=== PATIENT | female | born 1955 | race Caucasian/White ===

== ENCOUNTER → 2021-07-26 | Outpatient (CLI) | payer MEDICARE ==
[2021-07-26 15:26] VITALS: BP 168/107; PULSE 77; TEMP 98.2; BMI 39.4
--- NOTE | 2021-07-26 16:20 | P.HPBAR ---
Bariatric H&P - History & Physicial H&P Date: 07/26/21 History & Physicial: Visit/CC: lap band follow up Patient initial contact: Initial weight: Initial weight in pounds: Height: 5 ft Initial BMI: Last weight: Current weight: 91.626 kg Current weight in pounds: 202.00 Current BMI: 39.4 [place] body weight (based on NIH guidelines): 45.359 kg Excess body weight loss: The patient is a 66 year-old F who presents for Bariatric Assessment. Patient resents today for LAP-BAND follow-up. She's been seen several years. She has some mild GERD. She is question remove her band and convert to sleeve gastrectomy. Her issues with GERD significant over the last several years. He is unable to have her Syde adjusted due to increasing GERD symptoms. Past Medical History History of Any Multi-Drug Resistant Organisms: None Reported Past Surgical History: Bariatric Surgery Additional Past Surgical History / Comment(s): lap band 2000 lap band replacement 2009 panniculectomy Past Anesthesia/Blood Transfusion Reactions: No Reported Reaction Past Psychological History: Anxiety, Depression Smoking Status: Never smoker Past Alcohol Use History: None Reported Past Drug Use History: None Reported Surgical - Exam Vital Signs Temp Pulse BP 98.2 F 77 168/107 07/26/21 15:17 07/26/21 15:17 07/26/21 15:17 - General well developed, well nourished, no distress - Eyes PERRL - ENT normal pinna - Neck no masses - Respiratory normal expansion - Cardiovascular Rhythm: regular - Abdomen Abdomen: soft, non tender Bariatric Assessment & Plan Plan: I discussed the patient removal of LAP-BAND conversion sleeve yesterday. I went over the risks and benefits of procedure. The patient will have an EGD performed if she should sized to Convert sleeve yesterday. We will attempt insurance authorization. Bariatric Checklist Checklist: Plan: Checklist: EGD: 1. Hiatal hernia: 2. H. Pylori: HgbA1c: Vitamin D: Smoking: Primary care physician referral: dr mcclellan Psychiatry clearance: Cardiology clearance: Sleep study: Diet journal: VTE risk score: VTE risk level: Rehab needs at discharge:
[2021-07-26 16:32] LABS: HCT 40.9 % (34.0-46.0); HGB 13.2 gm/dL (11.4-16.0); MCH 29.6 pg (25.0-35.0); MCHC 32.3 g/dL (31.0-37.0); MCV 91.7 fL (80.0-100.0); Mean Platelet Volume 7.7; Platelet Count 282 k/uL (150-450); RBC 4.46 m/uL (3.80-5.40); RDW 13.1 % (11.5-15.5); WBC 8.8 k/uL (3.8-10.6)
[2021-07-27 05:11] LABS: African American GFR (CKD) 107.1 (60.0-200.0); Albumin 4.5 g/dL (3.8-4.9); Albumin/Globulin Ratio 1.85 (1.60-3.17); Anion Gap 13.6 mmol/L (4.00-12.00); BUN/Creat Ratio 20.69 Ratio (12.00-20.00); Blood Urea Nitrogen 13.8 mg/dL (9.0-27.0); Carbon Dioxide 20.3 mmol/L (21.6-31.8); Folate, Serum 6.5 ng/mL (4.40-31.00); Globulin 2.4 g/dL (1.6-3.3); Non-African American GFR(CKD) 92.4 (60.0-200.0); Potassium 4.5 mmol/L (3.5-5.5); Total Bilirubin 0.4 mg/dL (0.30-1.20)
== END ==
LOC: BARWHC3 14:45
PROVIDERS: ATTEND Surgery
DX: Z08 Encounter for follow-up examination after completed treatment for malignant neoplasm (principal); K21.9 Gastro-esophageal reflux disease without esophagitis; Z98.84 Bariatric surgery status; F41.9 Anxiety disorder, unspecified; F32.9 Major depressive disorder, single episode, unspecified
CPT/HCPCS: 84425; 80053; 82607; 82746; 85027; 82306; 83036; 93005; G0463; 99211

== ENCOUNTER 2021-10-18 08:04 | Day surgery (SDC) | payer MEDICARE ==
[2021-10-13 11:31] VITALS: BMI 39.0
[2021-10-18 08:20] VITALS: TEMP 97.8
[2021-10-18] MEDS ORDERED: LACTATED RINGERS 1,000 ML IV SCH (08:27)
[2021-10-18] MEDS ORDERED: LIDOCAINE 1% (10MG/ML) FOR IV START INTRADERMA PRN (08:27)
[2021-10-18] MEDS ORDERED: LIDOCAINE 1% INJ 10MG/ML (20 ML MDV) ONE (09:10)
[2021-10-18] MEDS ORDERED: GLYCOPYRROLATE 0.2 MG/ML 2 ML VIAL ONE (09:10)
[2021-10-18] MEDS ORDERED: PROPOFOL 10 MG/ML 20 ML VIAL IV ONE (09:10)
--- NOTE | 2021-10-18 09:16 | P.GSHP ---
History of Present Illness H&P Date: 10/18/21 Chief Complaint: GERD, morbid obesity Is a 66-year-old female history of morbid obesity and of GERD. Patient undergoing workup for conversion sleeve gastrectomy. Past Medical History Past Medical History: Osteoarthritis (OA) Additional Past Medical History / Comment(s): LAP BAND REMOVED-POSSIBLE GASTRIC SLEEVE OR BYPASS History of Any Multi-Drug Resistant Organisms: None Reported Past Surgical History: Bariatric Surgery Additional Past Surgical History / Comment(s): lap band 2000, lap band replacement 2009, panniculectomy, EGD, Past Anesthesia/Blood Transfusion Reactions: No Reported Reaction Smoking Status: Never smoker - Past Family History Sister(s) Family Medical History: Cancer Father Family Medical History: Cancer Medications and Allergies Home Medications Medication Instructions Recorded Confirmed Type Escitalopram [Lexapro] 20 mg PO DAILY 07/27/21 10/13/21 History Gabapentin 300 mg PO TID 07/27/21 10/13/21 History HYDROcodone/APAP 10-325MG [[place] 1 tab PO TID 07/27/21 10/13/21 History 10-325] buPROPion [Wellbutrin] 75 mg PO DAILY 07/27/21 10/13/21 History Allergies Allergy/AdvReac Type Severity Reaction Status Date / Time No Known Allergies Allergy Verified 10/18/21 08:21 Surgical - Exam Vital Signs Temp Pulse Resp BP Pulse Ox 97.8 F 73 20 148/89 98 10/18/21 08:19 10/18/21 08:19 10/18/21 08:19 10/18/21 08:19 10/18/21 08:19 - General well developed, well nourished, no distress - Eyes PERRL - ENT normal pinna - Neck no masses - Respiratory normal expansion - Cardiovascular Rhythm: regular - Abdomen Abdomen: soft, non tender Assessment and Plan Assessment: GERD, morbid obesity. We'll perform EGD.
--- NOTE | 2021-10-18 09:20 | P.OP ---
Date of Procedure: 10/18/21 Preoperative Diagnosis: GERD Morbid obesity Postoperative Diagnosis: Gastritis Morbid obesity Procedure(s) Performed: EGD Anesthesia: MAC Surgeon: Nabeel Ellis Pathology: other (Antrum) Condition: stable Disposition: PACU Description of Procedure: Patient's placed on the endoscopy table in the lateral position. She received IV sedation. The gastroscope placed oropharynx passed in the esophagus and stomach. Scope placement pylorus. The first and second portion of duodenum appeared normal. Scope summer back the antrum this. Mildly inflamed. A biopsies performed. Scope was unretroflexed and remainder of the stomach appeared normal. The GE junction was at 40 cm. The distal esophagus. Normal. Proximal esophagus performed scope withdrawn for patient.
[2021-10-18 09:33] VITALS: RESP 16
[2021-10-18 09:57] VITALS: BP 115/74; PULSE 77
== END 2021-10-18 10:10 | disposition home or self-care (01) ==
LOC: ORWHC2ENDO 08:04
PROVIDERS: ATTEND Surgery
DX: K29.70 Gastritis, unspecified, without bleeding (principal); K21.9 Gastro-esophageal reflux disease without esophagitis; E66.01 Morbid (severe) obesity due to excess calories; M19.90 Unspecified osteoarthritis, unspecified site; F41.9 Anxiety disorder, unspecified; F32.A Depression, unspecified; Z68.39 Body mass index [BMI] 39.0-39.9, adult; Z98.890 Other specified postprocedural states; Z79.899 Other long term (current) drug therapy; Z80.9 Family history of malignant neoplasm, unspecified
CPT/HCPCS: 88305; 43239; J2001; J2704

== ENCOUNTER → 2021-11-22 | Outpatient (CLI) | payer MEDICARE ==
[2021-11-22 14:15] VITALS: BP 155/91; PULSE 87; RESP 18; TEMP 98.3; BMI 38.0
--- NOTE | 2021-12-02 18:48 | P.HPBAR ---
Bariatric H&P - History & Physicial H&P Date: 11/22/21 History & Physicial: Visit/CC: follow up Patient initial contact: Initial weight: Initial weight in pounds: Height: 5 ft Initial BMI: Last weight: Current weight: 88.451 kg Current weight in pounds: 195.00 Current BMI: 38.0 [place] body weight (based on NIH guidelines): 45.359 kg Excess body weight loss: The patient is a 66 year-old F who presents for Bariatric Assessment. Patient presents today for bariatric follow-up. She has some mild GERD. She has not been seen in several months. Past Medical History Past Medical History: Osteoarthritis (OA) Additional Past Medical History / Comment(s): LAP BAND REMOVED-POSSIBLE GASTRIC SLEEVE OR BYPASS History of Any Multi-Drug Resistant Organisms: None Reported Past Surgical History: Bariatric Surgery Additional Past Surgical History / Comment(s): lap band 2000, lap band replacement 2009, panniculectomy, EGD, Past Anesthesia/Blood Transfusion Reactions: No Reported Reaction Past Psychological History: Anxiety, Depression Smoking Status: Never smoker Past Alcohol Use History: None Reported Past Drug Use History: None Reported - Past Family History Sister(s) Family Medical History: Cancer Father Family Medical History: Cancer Surgical - Exam Vital Signs Temp Pulse Resp BP 98.3 F 87 18 155/91 11/22/21 14:11 11/22/21 14:11 11/22/21 14:11 11/22/21 14:11 - General well developed, well nourished, no distress - Eyes PERRL - ENT normal pinna - Neck no masses - Respiratory normal expansion - Cardiovascular Rhythm: regular - Abdomen Abdomen: soft, non tender Bariatric Assessment & Plan Plan: Patient is doing well from late weight loss standpoint. Her GERD is minimal and will be observed. She'll follow-up in 4 weeks. Bariatric Checklist Checklist: Plan: Checklist: EGD: 1. Hiatal hernia: 2. H. Pylori: HgbA1c: Vitamin D: Smoking: Primary care physician referral: dr mcclellan Psychiatry clearance: Cardiology clearance: Sleep study: Diet journal: VTE risk score: VTE risk level: Rehab needs at discharge:
== END ==
LOC: BARWHC3 13:15
PROVIDERS: ATTEND Surgery
DX: Z09 Encounter for follow-up examination after completed treatment for conditions other than malignant neoplasm (principal); K21.9 Gastro-esophageal reflux disease without esophagitis; M19.90 Unspecified osteoarthritis, unspecified site; Z98.84 Bariatric surgery status; F32.A Depression, unspecified; F41.9 Anxiety disorder, unspecified
CPT/HCPCS: 99211

== ENCOUNTER → 2021-12-27 | Outpatient (CLI) | payer MEDICARE ==
[2021-12-27 13:28] VITALS: BP 168/101; PULSE 90; RESP 16; TEMP 98.1
[2021-12-27 13:29] VITALS: BMI 38.7
--- NOTE | 2021-12-28 11:51 | P.HPBAR ---
Bariatric H&P - History & Physicial H&P Date: 12/27/21 History & Physicial: Visit/CC: Lap band F/U Patient initial contact: Initial weight: 95.254 kg Initial weight in pounds: 210.00 Height: 5 ft Initial BMI: 41.0 Last weight: Current weight: 89.811 kg Current weight in pounds: 198.00 Current BMI: 38.7 [place] body weight (based on NIH guidelines): 45.359 kg Excess body weight loss: 10.9% The patient is a 66 year-old F who presents for Bariatric Assessment. Patient resents today for [place] fall. She wishes undergo sleeve conversion. She's had issues with GERD and dysphagia her LAP-BAND. Past Medical History Past Medical History: Osteoarthritis (OA) Additional Past Medical History / Comment(s): LAP BAND REMOVED-POSSIBLE GASTRIC SLEEVE OR BYPASS History of Any Multi-Drug Resistant Organisms: None Reported Past Surgical History: Bariatric Surgery Additional Past Surgical History / Comment(s): lap band 2000, lap band replacement 2009, panniculectomy, EGD, Past Anesthesia/Blood Transfusion Reactions: No Reported Reaction Past Psychological History: Anxiety, Depression Smoking Status: Never smoker Past Alcohol Use History: None Reported Past Drug Use History: None Reported - Past Family History Sister(s) Family Medical History: Cancer Father Family Medical History: Cancer Surgical - Exam Vital Signs Temp Pulse Resp BP 98.1 F 90 16 168/101 12/27/21 13:19 12/27/21 13:19 12/27/21 13:19 12/27/21 13:19 - General well developed, well nourished, no distress - Eyes PERRL - ENT normal pinna - Neck no masses - Respiratory normal expansion - Cardiovascular Rhythm: regular - Abdomen Abdomen: soft, non tender Bariatric Assessment & Plan Plan: GERD, dysphagia. Patient will attempt to have insurance authorization for conversion to sleeve gastrectomy. Bariatric Checklist Checklist: Plan: Checklist: EGD: 1. Hiatal hernia: 2. H. Pylori: HgbA1c: Vitamin D: Smoking: Primary care physician referral: dr mcclellan Psychiatry clearance: Cardiology clearance: Sleep study: Diet journal: VTE risk score: VTE risk level: Rehab needs at discharge:
== END ==
LOC: BARWHC3 13:09
PROVIDERS: ATTEND Surgery
DX: Z09 Encounter for follow-up examination after completed treatment for conditions other than malignant neoplasm (principal); K21.9 Gastro-esophageal reflux disease without esophagitis; M19.90 Unspecified osteoarthritis, unspecified site; Z98.84 Bariatric surgery status; F41.9 Anxiety disorder, unspecified; F32.A Depression, unspecified
CPT/HCPCS: 99211

== ENCOUNTER → 2022-01-17 | Outpatient (CLI) | payer MEDICARE ==
[2022-01-17 12:26] VITALS: BMI 39.6
== END ==
LOC: BARWHC3 08:29
PROVIDERS: ATTEND Surgery
DX: E66.01 Morbid (severe) obesity due to excess calories (principal); Z71.3 Dietary counseling and surveillance; Z68.39 Body mass index [BMI] 39.0-39.9, adult
CPT/HCPCS: 97804

== ENCOUNTER → 2022-03-28 | Outpatient (CLI) | payer MEDICARE ==
[2022-03-28 13:56] VITALS: BP 153/88; PULSE 82; RESP 12; TEMP 97.8; BMI 37.7
--- NOTE | 2022-03-28 14:57 | P.HPBAR ---
Bariatric H&P - History & Physicial H&P Date: 03/28/22 History & Physicial: Visit/CC: presurgical sleeve Patient initial contact: Initial weight: 95.254 kg Initial weight in pounds: 210.00 Height: 5 ft Initial BMI: 41.0 Last weight: Current weight: 87.543 kg Current weight in pounds: 193.00 Current BMI: 37.7 [place] body weight (based on NIH guidelines): 45.359 kg Excess body weight loss: 15.4% The patient is a 66 year-old F who presents for Bariatric Assessment. Patient presents today for presurgical consultation. She is requesting to convert from LAP-BAND procedure to gastric sleeve. Patient is alert morbidly obese. BMI is 38. Patient is an excellent understanding the procedure including possible risks such as gastric injury small bowel injury. Past Medical History Past Medical History: Osteoarthritis (OA), Sleep Apnea/CPAP/BIPAP Additional Past Medical History / Comment(s): LAP BAND REMOVED-POSSIBLE GASTRIC SLEEVE OR BYPASS History of Any Multi-Drug Resistant Organisms: None Reported Past Surgical History: Bariatric Surgery Additional Past Surgical History / Comment(s): lap band 2000, lap band replacement 2009, panniculectomy, EGD, Past Anesthesia/Blood Transfusion Reactions: No Reported Reaction Past Psychological History: Anxiety, Depression Smoking Status: Never smoker Past Alcohol Use History: None Reported Past Drug Use History: None Reported - Past Family History Sister(s) Family Medical History: Cancer Father Family Medical History: Cancer Surgical - Exam Vital Signs Temp Pulse Resp BP 97.8 F 82 12 153/88 03/28/22 13:52 03/28/22 13:52 03/28/22 13:52 03/28/22 13:52 - General well developed, well nourished, no distress - Abdomen Abdomen: soft, non tender Bariatric Assessment & Plan Plan: Morbid obesity. Patient be converted from lap band to gastric sleeve. QUESTIONS have been answered in the office. Bariatric Checklist Checklist: Plan: Checklist: EGD: 1. Hiatal hernia: 2. H. Pylori: HgbA1c: Vitamin D: Smoking: Primary care physician referral: dr mcclellan Psychiatry clearance: Cardiology clearance: Sleep study: Diet journal: VTE risk score: VTE risk level: Rehab needs at discharge:
[2022-03-28 22:27] LABS: Basophils # (A) 0.07 X 10*3/uL (0.00-0.10); Basophils % (A) 0.9 %; Eosinophils # (A) 0.19 X 10*3/uL (0.04-0.35); Eosinophils % (A) 2.3 %; HCT 43.1 % (37.2-46.3); HGB 14.1 g/dL (12.0-15.0); Immature Grans, Automated 0.2 %; Lymphocytes # (A) 2.79 X 10*3/uL (0.90-5.00); Lymphocytes % (A) 34.1 %; MCH 29.6 pg (27.0-32.0); MCHC 32.7 g/dL (32.0-37.0); MCV 90.5 fL (80.0-97.0); Mean Platelet Volume 10.9 fL (9.5-12.2); Monocytes # (A) 0.92 X 10*3/uL (0.20-1.00); Monocytes % (A) 11.2 %; NRBC Per 100 WBC 0 /100 WBCS (0.0-0.0); Neutrophils # (A) 4.19 X 10*3/uL (1.80-7.70); Neutrophils % (A) 51.3 %; Platelet Count 296 X 10*3/uL (140-440); RBC 4.76 X 10*6/uL (4.10-5.20); RDW 13.1 % (11.5-14.5); WBC 8.18 X 10*3/uL (4.50-10.00)
[2022-03-28 22:28] LABS: African American GFR (CKD) 105.4 (60.0-200.0); Albumin 4.6 g/dL (3.8-4.9); Albumin/Globulin Ratio 1.64 (1.60-3.17); Anion Gap 13.2 mmol/L (10.00-18.00); BUN/Creat Ratio 19.71 Ratio (12.00-20.00); Blood Urea Nitrogen 13.8 mg/dL (9.0-27.0); Calcium 10.6 mg/dL (8.7-10.3); Carbon Dioxide 24.8 mmol/L (20.0-27.5); Globulin 2.8 g/dL (1.6-3.3); Non-African American GFR(CKD) 90.9 (60.0-200.0); Potassium 4.2 mmol/L (3.5-5.5); Total Bilirubin 0.7 mg/dL (0.30-1.20); Total Protein 7.4 g/dL (6.2-8.2)
== END ==
LOC: BARWHC3 13:38
PROVIDERS: ATTEND Surgery
DX: Z01.818 Encounter for other preprocedural examination (principal); E66.01 Morbid (severe) obesity due to excess calories; M19.90 Unspecified osteoarthritis, unspecified site; F41.9 Anxiety disorder, unspecified; F32.A Depression, unspecified; Z68.38 Body mass index [BMI] 38.0-38.9, adult; Z79.899 Other long term (current) drug therapy
CPT/HCPCS: 80053; 85025; G0463; 99211

== ENCOUNTER 2022-04-04 06:48 | Inpatient (IN) | payer MEDICARE ==
[~2022-04-04 06:48] MED LIST: DEXAMETHASONE SOD PHOSPHATE 4 MG/ML 1 ML VIAL IV ONE; ENOXAPARIN 40 MG/0.4 ML SYRINGE SQ PRN; LIDOCAINE 1% (10MG/ML) FOR IV START INTRADERMA PRN; ONDANSETRON 4 MG/2 ML VIAL IVP ONE
[2022-04-04] MEDS: LACTATED RINGERS 1,000 ML IV SCH (07:44)
--- NOTE | 2022-04-04 08:41 | P.GSHP ---
History of Present Illness H&P Date: 04/04/22 Chief Complaint: Morbid obesity This a 66-year-old female with morbid obesity. Her BMI is 37. Patient's had previous Syed surgery. Patient is unable to have her LAP-BAND adjusted any further. Patient presents today for removal of LAP-BAND system and conversion sleeve gastrectomy. Patient is aware of the risks of surgery including possible gastric injury, bleeding and infection. Past Medical History Past Medical History: Osteoarthritis (OA), Sleep Apnea/CPAP/BIPAP Additional Past Medical History / Comment(s): no CPAP use History of Any Multi-Drug Resistant Organisms: None Reported Past Surgical History: Bariatric Surgery Additional Past Surgical History / Comment(s): lap band 2000, lap band replacement 2009, panniculectomy, EGD, Past Anesthesia/Blood Transfusion Reactions: No Reported Reaction Smoking Status: Never smoker - Past Family History Sister(s) Family Medical History: Cancer Father Family Medical History: Cancer Medications and Allergies Home Medications Medication Instructions Recorded Confirmed Type Escitalopram [Lexapro] 20 mg PO DAILY 07/27/21 04/04/22 History Gabapentin 300 mg PO TID 07/27/21 04/04/22 History HYDROcodone/APAP 10-325MG [[place] 1 tab PO TID 07/27/21 04/04/22 History 10-325] buPROPion [Wellbutrin] 150 mg PO BID 07/27/21 04/04/22 History Allergies Allergy/AdvReac Type Severity Reaction Status Date / Time No Known Allergies Allergy Verified 04/04/22 07:28 Surgical - Exam Vital Signs Temp Pulse Resp BP Pulse Ox 97.1 F L 76 16 152/97 98 04/04/22 07:30 04/04/22 07:30 04/04/22 07:30 04/04/22 07:30 04/04/22 07:30 - General well developed, well nourished, no distress - Eyes PERRL - ENT normal pinna - Neck no masses - Respiratory normal expansion - Cardiovascular Rhythm: regular - Abdomen Abdomen: soft, non tender Assessment and Plan Assessment: Morbid obesity. We'll perform removal of LAP-BAND conversion to sleeve gastrectomy.
[2022-04-04] MEDS ORDERED: PHENYLEPHRINE-0.9% NACL SYG 1,000 MCG/10 ML SYRINGE ONE (09:00)
[2022-04-04] MEDS ORDERED: PROPOFOL 10 MG/ML 20 ML VIAL IV ONE (09:00)
[2022-04-04] MEDS ORDERED: KETOROLAC 15 MG/ML 1 ML VIAL ONE (09:00)
[2022-04-04] MEDS ORDERED: HYDROmorphone (PF) 1 MG/ML ONE (09:00)
[2022-04-04] MEDS ORDERED: LIDOCAINE 4% LTA KIT (4 ML) TOPICAL ONE (09:00)
[2022-04-04] MEDS ORDERED: SUCCINYLCHOLINE CHLORIDE 100 MG/5 ML SYR IV ONE (09:00)
[2022-04-04] MEDS ORDERED: GLYCOPYRROLATE 0.2 MG/ML 2 ML VIAL ONE (09:00)
[2022-04-04] MEDS ORDERED: NEOSTIGMINE 1 MG/ML 10 ML VIAL ONE (09:00)
[2022-04-04] MEDS ORDERED: MIDAZOLAM 2 MG/2 ML VIAL ONE (09:00)
[2022-04-04] MEDS ORDERED: fentaNYL (PF) 50 MCG/ML 2 ML AMP ONE (09:00)
[2022-04-04] MEDS ORDERED: BUPIVACAIN-EPI 0.25%-1:200,000 30 ML VIAL SQ ONE (09:35)
[2022-04-04] MEDS ORDERED: LACTATED RINGERS 1,000 ML IV ONE (09:52)
[2022-04-04] MEDS ORDERED: NALOXONE 0.4 MG/ML 1 ML VIAL IV PRN (10:44)
[2022-04-04] MEDS: HYDROmorphone 0.5 MG/0.5 ML SYRINGE IVP PRN ×5 (11:08→22:04)
[2022-04-04] MEDS: KETOROLAC 15 MG/ML 1 ML VIAL IVP SCH ×3 (12:29→23:23)
[2022-04-04] MEDS: ALBUTEROL NEBULIZED 2.5 MG/3 ML INHALATION SCH ×3 (12:53→20:30)
[2022-04-04] MEDS: 0.9% NACL WITH KCL 20 MEQ/L 1,000 ML IV SCH ×2 (13:35→23:24)
[2022-04-04] MEDS: SIMETHICONE 40 MG/0.6 ML DROPS 2,000 MG/30 ML BOTTLE PO PRN (13:37)
[2022-04-04] MEDS: HYOSCYAMINE ORAL DROPS 1.875 MG/15 ML BOTTLE PO PRN (13:38)
[2022-04-04] MEDS: HYDROmorphone 1 MG/ML 1 ML SYRINGE IVP PRN (16:07)
--- NOTE | 2022-04-04 19:17 | CONS ---
CONSULTATION REASON FOR CONSULTATION: Advice regarding sleep apnea and multiple other medical issues, requested by Dr. Ellis. HISTORY OF PRESENT ILLNESS: This 66-year-old woman with a past medical history of DJD and sleep apnea underwent removal of lap band and conversion to sleeve gastrectomy. The patient tolerated the procedure well. There is no history of any fever or rigors. No history of headache, loss of consciousness, seizures. PAST MEDICAL HISTORY: Previous history of gastric surgery, multiple medical issues. HOME MEDICATIONS: Reviewed. They include Wellbutrin. Doses and the rest of the medications are noted. ALLERGIES: NONE. FAMILY HISTORY: History of cancer in the family. SOCIAL HISTORY: No history of smoking. No history of alcohol intake. REVIEW OF SYSTEMS: Fourteen-point review of systems negative except as mentioned earlier. PHYSICAL EXAMINATION: Pulse 76, blood pressure 114/77, pulse ox 92% on room air. HEENT: Conjunctivae normal. NECK: No jugular venous distention. CARDIOVASCULAR: S1, S2 muffled. RESPIRATION: Breath sounds diminished at the bases. A few scattered rhonchi. ABDOMEN: Soft. Status post surgery. LEGS: No edema. No swelling. NERVOUS SYSTEM: Higher functions as mentioned earlier. Moves all 4 limbs. No focal motor or sensory deficit. LYMPHATICS: No lymph node palpable in neck, axillae or groin. SKIN: No ulcer, rash, bleeding. JOINTS: No active deforming arthropathy. LABS: The preop labs are reviewed. Chemistry within normal limits. ASSESSMENT: 1. Status post removal of lap band and sleeve gastrectomy. 2. Degenerative joint disease. 3. History of sleep apnea. RECOMMENDATIONS AND DISCUSSION: In this 66-year-old woman who presented after surgery, at this time I recommend to continue current medications. Resume the home medications. Patient is currently medically stable. Proton pump inhibitors. DVT prophylaxis. Will follow the patient closely with you. Patient may be asked to follow up with primary physician closely after discharge. Thank you, Dr. Ellis. MMIFEANYIL / WESTN: [id number] /
[2022-04-04] MEDS: ENOXAPARIN 40 MG/0.4 ML SYRINGE SQ SCH (21:05)
[2022-04-04] MEDS: ONDANSETRON 4 MG/2 ML VIAL IVP PRN (22:04)
[2022-04-05] MEDS: SIMETHICONE 40 MG/0.6 ML DROPS 2,000 MG/30 ML BOTTLE PO PRN ×2 (00:03→18:01)
[2022-04-05] MEDS: HYDROmorphone 0.5 MG/0.5 ML SYRINGE IVP PRN (03:43)
[2022-04-05] MEDS: 0.9% NACL WITH KCL 20 MEQ/L 1,000 ML IV SCH (04:46)
[2022-04-05] MEDS: KETOROLAC 15 MG/ML 1 ML VIAL IVP SCH ×3 (05:07→18:01)
[2022-04-05] MEDS: LACTATED RINGERS 1,000 ML IV SCH (07:43)
[2022-04-05] MEDS: HYDROmorphone 1 MG/ML 1 ML SYRINGE IVP PRN (08:06)
[2022-04-05] MEDS: PANTOPRAZOLE 40 MG/10 ML VIAL IV SCH (08:06)
[2022-04-05 09:10] LABS: Basophils # (A) 0.03 X 10*3/uL (0.00-0.10); Basophils % (A) 0.3 %; Eosinophils # (A) 0.01 X 10*3/uL (0.04-0.35); Eosinophils % (A) 0.1 %; HCT 38.6 % (37.2-46.3); HGB 12.8 g/dL (12.0-15.0); Immature Grans, Automated 0.4 %; Lymphocytes # (A) 1.79 X 10*3/uL (0.90-5.00); Lymphocytes % (A) 16.4 %; MCH 30.2 pg (27.0-32.0); MCHC 33.2 g/dL (32.0-37.0); Mean Platelet Volume 11.5 fL (9.5-12.2); Monocytes # (A) 1.41 X 10*3/uL (0.20-1.00); Monocytes % (A) 12.9 %; NRBC Per 100 WBC 0 /100 WBCS (0.0-0.0); Neutrophils # (A) 7.64 X 10*3/uL (1.80-7.70); Neutrophils % (A) 69.9 %; Platelet Count 242 X 10*3/uL (140-440); RBC 4.24 X 10*6/uL (4.10-5.20); RDW 13.2 % (11.5-14.5); WBC 10.92 X 10*3/uL (4.50-10.00)
[2022-04-05] MEDS: ALBUTEROL NEBULIZED 2.5 MG/3 ML INHALATION SCH ×4 (09:18→19:41)
[2022-04-05 09:53] LABS: African American GFR (CKD) 110.4 (60.0-200.0); Anion Gap 14.5 mmol/L (10.00-18.00); Blood Urea Nitrogen 13.4 mg/dL (9.0-27.0); Calcium 9.6 mg/dL (8.7-10.3); Carbon Dioxide 19.8 mmol/L (20.0-27.5); Magnesium 1.9 mg/dL (1.5-2.4); Non-African American GFR(CKD) 95.3 (60.0-200.0); Phosphorus 2.4 mg/dL (2.4-5.1); Potassium 4.7 mmol/L (3.5-5.5)
[2022-04-05] MEDS: ESCITALOPRAM 20 MG TAB PO SCH (10:49)
[2022-04-05] MEDS: ENOXAPARIN 40 MG/0.4 ML SYRINGE SQ SCH ×2 (10:49→22:26)
[2022-04-05 11:06] VITALS: BMI 36.5
[2022-04-05] MEDS: 1: THIAMINE 100 MG, FOLIC ACID 1 MG in 0.9% NACL WITH KCL 20 MEQ/L 1,000 ML 2: 0.9% NAC IVPB SCH ×2 (12:32→22:25)
--- NOTE | 2022-04-05 13:03 | P.PN ---
Subjective Progress Note Date: 04/05/22 CHIEF COMPLAINT: Morbid obesity HISTORY OF PRESENT ILLNESS: Patient is status post laparoscopic sleeve ga strectomy. Patient reports that she was having pain a 10 last night. She reports a decrease in pain this morning. She reports her pain is better controlled. She denies any vomiting. However she has been nauseated and is having flatus. She has met with the bariatric nurses. Currently on a bariatric clear liquid diet. Denies any difficulty swallowing. Afebrile. WBC 10.92 hemoglobin 12.8 platelets 242 sodium 137 potassium 4.7 creatinine 0.6 magnesium 1.9 Patient seen and examined with Dr. Ellis PHYSICAL EXAM: VITAL SIGNS: Reviewed. GENERAL: Well-developed in no acute distress. HEENT: No sclera icterus. Extraocular movements grossly intact. Moist buccal mucosa. Head is atraumatic, normocephalic. ABDOMEN: Soft. Nondistended. . NEUROLOGIC: Alert and oriented. Cranial nerves II through XII grossly intact. ASSESSMENT: 1. Morbid obesity status post laparoscopic sleeve gastrectomy PLAN: -Continue bariatric clear liquid diet -Add oral [place] elixir for pain control -Encouraged patient to ambulate -Continue antiemetics as needed -Continue IV fluids -Anticipate discharge tomorrow Physician Quality Manager note has been reviewed by physician. Signing provider agrees with the documented findings, assessment, and plan of care. Objective - Vital Signs Vital signs: Vital Signs Temp 98 F 04/05/22 07:25 Pulse 70 04/05/22 07:25 Resp 22 04/05/22 07:25 BP 120/68 04/05/22 07:25 Pulse Ox 92 L 04/05/22 07:25 FiO2 Intake & Output 04/04/22 04/05/22 04/05/22 18:59 06:59 18:59 Intake Total 2200 1250 Output Total 10 Balance 2190 1250 Weight 84.8 kg 84.8 kg Intake: IV 2200 Intake, IV Titration 1250 Amount 0.9% NaCl with KCl 20 Meq 1250 /l 1,000 ml @ 100 mls/hr IVPB .BY DURATION SHIRLEY Rx# :[id number] Output: Estimated Blood Loss 10 Other: # Voids 1 2 - Labs CBC & Chem 7: 04/05/22 04:56 04/05/22 04:56 Labs: Abnormal Lab Results - Last 24 Hours (Table) 04/05/22 04/05/22 Range/Units 04:56 04:56 WBC 10.92 H (4.50-10.00) X 10*3/uL Monocytes # 1.41 H (0.20-1.00) X 10*3/uL Eosinophils # 0.01 L (0.04-0.35) X 10*3/uL Carbon Dioxide 19.8 L (20.0-27.5) mmol/L
[2022-04-05] MEDS: HYDROcodone/APAP 15 ML SOLUTION PO PRN (18:01)
[2022-04-05] MEDS: HYOSCYAMINE ORAL DROPS 1.875 MG/15 ML BOTTLE PO PRN (18:02)
[2022-04-05] MEDS: ONDANSETRON 4 MG/2 ML VIAL IVP PRN (18:09)
--- NOTE | 2022-04-05 19:17 | PN ---
PROGRESS NOTE DATE OF SERVICE: 04/05/2022 This 66-year-old woman who was admitted after removal of lap band and sleeve gastrectomy is complaining of some abdominal pain. No chest pain. No palpitations. No fever. PHYSICAL EXAMINATION: Pulse 70, blood pressure 120/69, respiration 22. HEENT: Conjunctivae normal. CARDIOVASCULAR: S1, S2 muffled. RESPIRATION: Breath sounds diminished at the bases. No rhonchi. No crackles. ABDOMEN: Soft. Status post surgery. NERVOUS SYSTEM: No focal deficit. LABS: Reviewed. ASSESSMENT: 1. Status post removal of lap band and sleeve gastrectomy. 2. Degenerative joint disease. 3. History of sleep apnea. RECOMMENDATIONS AND DISCUSSION: I recommend to continue current medications, continue with the monitoring, symptomatic treatment. Continue with incentive spirometry. Continue with pain management per Surgery. DVT prophylaxis. Further recommendations to follow. LORIE / PATY: [id number] / MTDD
[2022-04-06] MEDS: KETOROLAC 15 MG/ML 1 ML VIAL IVP SCH ×2 (00:19→07:44)
[2022-04-06] MEDS: HYDROcodone/APAP 15 ML SOLUTION PO PRN ×3 (03:20→23:55)
[2022-04-06] MEDS: ENOXAPARIN 40 MG/0.4 ML SYRINGE SQ SCH ×2 (07:44→20:53)
[2022-04-06] MEDS: PANTOPRAZOLE 40 MG/10 ML VIAL IV SCH (07:44)
[2022-04-06] MEDS: ESCITALOPRAM 20 MG TAB PO SCH (07:44)
[2022-04-06] MEDS: 1: THIAMINE 100 MG, FOLIC ACID 1 MG in 0.9% NACL WITH KCL 20 MEQ/L 1,000 ML 2: 0.9% NAC IVPB SCH ×2 (07:45→23:55)
[2022-04-06] MEDS: HYOSCYAMINE ORAL DROPS 1.875 MG/15 ML BOTTLE PO PRN (07:50)
[2022-04-06] MEDS: SIMETHICONE 40 MG/0.6 ML DROPS 2,000 MG/30 ML BOTTLE PO PRN (07:50)
[2022-04-06] MEDS: ALBUTEROL NEBULIZED 2.5 MG/3 ML INHALATION SCH ×4 (08:41→20:21)
[2022-04-06] MEDS: DEXAMETHASONE SOD PHOSPHATE 4 MG/ML 1 ML VIAL IVP SCH ×3 (13:46→23:55)
--- NOTE | 2022-04-06 15:32 | P.PN ---
Subjective Progress Note Date: 04/06/22 CHIEF COMPLAINT: Morbid obesity HISTORY OF PRESENT ILLNESS: Patient is status post laparoscopic sleeve ga strectomy. POD# 2. Patient complains of abdominal pain. After she drinks she has issues with burping, reflux and nausea. Patient has only been able to tolerate a very small amount of her bariatric clear liquids. She reports she is up and ambulating. No flatus. No bowel movement. Denies any difficulty urinating. Afebrile. Patient seen and examined with Dr. Ellis PHYSICAL EXAM: VITAL SIGNS: Reviewed. GENERAL: Well-developed in no acute distress. HEENT: No sclera icterus. Extraocular movements grossly intact. Moist buccal mucosa. Head is atraumatic, normocephalic. ABDOMEN: Soft. Nondistended. NEUROLOGIC: Alert and oriented. Cranial nerves II through XII grossly intact. ASSESSMENT: 1. Morbid obesity status post laparoscopic sleeve gastrectomy PLAN: -Add IV Decadron to help with nausea and reflux symptoms -Continue bariatric clear liquid diet -Continue pain medication as needed -Encouraged patient to ambulate -Continue antiemetics as needed -Continue IV fluids -DVT prophylaxis Lovenox and GI prophylaxis Protonix Physician Store Stock Associate note has been reviewed by physician. Signing provider agrees with the documented findings, assessment, and plan of care. Objective - Vital Signs Vital signs: Vital Signs Temp 97.8 F 04/06/22 08:00 Pulse 82 04/06/22 08:00 Resp 16 04/06/22 08:00 BP 158/83 04/06/22 08:00 Pulse Ox 92 L 04/06/22 08:43 FiO2 Intake & Output 04/05/22 04/06/22 04/06/22 18:59 06:59 18:59 Intake Total 300 933.333 Balance 300 933.333 Weight 84.8 kg Intake: Intake, IV Titration 933.333 Amount 0.9% NaCl with KCl 20 Meq 933.333 /l 1,000 ml @ 100 mls/hr IVPB .BY DURATION SHIRLEY Rx# :[id number] Oral 300 Other: # Voids 3 - Labs CBC & Chem 7: 04/05/22 04:56 04/05/22 04:56
--- NOTE | 2022-04-06 15:57 | P.PN ---
Subjective Progress Note Date: 04/06/22 This is a 66-year-old female who was recently admitted under surgical services and underwent laparoscopic sleeve gastrectomy with removal of previous lap band and is being closely monitored. Patient continues with very poor oral intake and was recently just started on clear liquids as patient is having reflux with burping and continues to be nauseated. Patient will continue on clear liquids per surgery and will continue with gentle IV hydration and decrease the dose to 60 mL per hour. Patient denies passing gas and has not had a bowel movement yet. Patient is urinating with no difficulties and does not have a Edgar catheter. Patient has been up walking and encouraged the patient to continue to increase activity as tolerated. Per surgical services patient is being started on IV Decadron to alleviate some symptoms and recommend repeat labs and follow- up with tolerance of clear liquids. Patient is afebrile denies any chest pain or shortness of breath. Patient continues with intermittent nausea although denies any vomiting. Review of systems: Constitutional: No reports of fatigue, fever, or chills Cardiovascular: No reports of chest pain or palpitations Respiratory: No reports of shortness of breath or cough GI: reports of occasional nausea, no reports of of vomiting, patient reports no gas and no bowel movement and also reports belching : No reports of dysuria or retention Neurovascular: reports of generalized weakness All medications have been reviewed Active Medications Hydrocodone Bitart/Acetaminophen (Hydrocodone/Apap 15 Ml Solution) 15 ml PO Q6HR PRN PRN Reason: Pain Last Admin: 04/06/22 13:52 Dose: 15 ml Albuterol Sulfate (Albuterol Nebulized 2.5 Mg/3 Ml) 2.5 mg INHALATION RT-QID [facility] Last Admin: 04/06/22 15:04 Dose: Not Given Dexamethasone Sodium Phosphate (Dexamethasone Sod Phosphate 4 Mg/Ml 1 Ml Vial) 4 mg IVP Q6HR [facility] Last Admin: 04/06/22 13:46 Dose: 4 mg Enoxaparin Sodium (Enoxaparin 40 Mg/0.4 Ml Syringe) 40 mg SQ Q12H [facility] Last Admin: 04/06/22 07:44 Dose: 40 mg Escitalopram Oxalate (Escitalopram 20 Mg Tab) 20 mg PO DAILY [facility] Last Admin: 04/06/22 07:44 Dose: 20 mg Hydromorphone HCl (Hydromorphone 0.5 Mg/0.5 Ml Syringe) 0.5 mg IVP Q3HR PRN PRN Reason: Moderate Pain (4 to 6) Last Admin: 04/05/22 03:43 Dose: 0.5 mg Hydromorphone HCl (Hydromorphone 1 Mg/Ml 1 Ml Syringe) 1 mg IVP Q3HR PRN PRN Reason: Severe Pain (7 to 10) Last Admin: 04/05/22 08:06 Dose: 1 mg Hyoscyamine (Hyoscyamine Oral Drops 1.875 Mg/15 Ml Bottle) 0.125 mg PO Q6HR PRN PRN Reason: Esophageal Spasm Last Admin: 04/06/22 07:50 Dose: 0.125 mg Thiamine HCl 100 mg/ Folic Acid 1 mg/ Potassium Chloride/Sodium Chloride 1,001.2 mls @ 60 mls/hr IVPB .BY DURATION [facility] Last Admin: 04/05/22 12:32 Dose: 100 mls/hr Potassium Chloride/Sodium Chloride (Ns-Kcl 20 Meq/L Iv Solution) 1,000 mls @ 100 mls/hr IVPB .BY DURATION [facility] Last Admin: 04/06/22 07:45 Dose: 100 mls/hr Lidocaine HCl (Lidocaine 1% (10mg/Ml) For Iv Start) 0.1 ml INTRADERMA PER PROTOCOL PRN PRN Reason: IV Start Last Admin: 04/04/22 07:43 Dose: 0.1 ml Naloxone HCl (Naloxone 0.4 Mg/Ml 1 Ml Vial) 0.2 mg IV Q2M PRN PRN Reason: Opioid Reversal Ondansetron HCl (Ondansetron 4 Mg/2 Ml Vial) 4 mg IVP Q8HR PRN PRN Reason: Nausea And Vomiting Last Admin: 04/05/22 18:09 Dose: 4 mg Pantoprazole Sodium (Pantoprazole 40 Mg/10 Ml Vial) 40 mg IV DAILY [facility] Last Admin: 04/06/22 07:44 Dose: 40 mg Simethicone (Simethicone 40 Mg/0.6 Ml Drops 2,000 Mg/30 Ml Bottle) 40 mg PO Q6HR PRN PRN Reason: Bloating Last Admin: 04/06/22 07:50 Dose: 40 mg PHYSICAL EXAMINATION: GENERAL: The patient is alert and oriented x4, Well developed, well nourished. Obese. HEENT: Pupils are round and equally reacting to light. EOMI. no scleral icterus. No conjunctival pallor. Normocephalic, atraumatic. No pharyngeal erythema. No thyromegaly. CARDIOVASCULAR: S1 and S2 muffled PULMONARY: diminished breath sounds bilaterally with no wheezing or rhonchi noted. ABDOMEN: soft. tender on exam. non-distended, sluggish bowel sounds. No palpable organomegaly. MUSCULOSKELETAL: No joint swelling or deformity. EXTREMITIES: No cyanosis, clubbing, or pedal edema. NEUROLOGICAL: Gross neurological examination did not reveal any focal deficits. SKIN: No rashes. Assessment: Status post removal of lap band and sleeve gastrectomy Degenerative joint disease History of sleep apnea GI prophylaxis DVT prophylaxis Full code Plan: Recommend to continue with current medications and management per surgical services. Patient continues to have significant abdominal pain and denies passing gas or bowel movements and continues to have intermittent nausea with no vomiting and not tolerating much of bariatric clear liquid diet. Patient being started on Decadron per surgery services and recommend close monitoring for tolerance of diet. Encouraged increased activity and also continue to use incentive spirometer at least 10 times every hour while awake. Recommend repeat labs in the morning and will continue to follow along with surgery services. Thank you for this consultation. Further recommendations to follow based on the clinical course of the patient. The impression and plan of care has been dictated by Iesha Groves, nurse practitioner as directed. MD Shalini I have performed a history and examination and MDM of this patient, discussed the same with the dictator, and agree with the dictator's assessment and plan as written ,documented as a scribe. Based on total visit time, I have performed more than 50% of the visit. Any additional findings or plans will be noted. Objective - Vital Signs Vital signs: Vital Signs Temp 98.7 F 04/06/22 01:36 Pulse 67 04/06/22 01:36 Resp 16 04/06/22 01:36 BP 138/73 04/06/22 01:36 Pulse Ox 92 L 04/06/22 08:43 FiO2 Intake & Output 04/05/22 04/06/22 04/06/22 18:59 06:59 18:59 Intake Total 300 933.333 Balance 300 933.333 Weight 84.8 kg Intake: Intake, IV Titration 933.333 Amount 0.9% NaCl with KCl 20 Meq 933.333 /l 1,000 ml @ 100 mls/hr IVPB .BY DURATION [facility] Rx# :[id number] Oral 300 Other: # Voids 3 - Labs CBC & Chem 7: 04/05/22 04:56 04/05/22 04:56 Labs: Abnormal Lab Results - Last 24 Hours (Table) 04/05/22 Range/Units 04:56 Carbon Dioxide 19.8 L (20.0-27.5) mmol/L
[2022-04-07] MEDS: DEXAMETHASONE SOD PHOSPHATE 4 MG/ML 1 ML VIAL IVP SCH ×3 (05:07→18:12)
[2022-04-07 07:35] LABS: Basophils % (A) 0 %; Eosinophils # (A) 0.1 k/uL (0-0.7); Eosinophils % (A) 1 %; HCT 40.5 % (34.0-46.0); Lymphocytes # (A) 1.2 k/uL (1.0-4.8); Lymphocytes % (A) 13 %; MCH 30.1 pg (25.0-35.0); MCHC 32.1 g/dL (31.0-37.0); MCV 93.8 fL (80.0-100.0); Mean Platelet Volume 9.3; Monocytes # (A) 0.2 k/uL (0-1.0); Monocytes % (A) 3 %; Neutrophils # (A) 7.9 k/uL (1.3-7.7); Neutrophils % (A) 83 %; Platelet Count 208 k/uL (150-450); RBC 4.32 m/uL (3.80-5.40); RDW 12.9 % (11.5-15.5); WBC 9.5 k/uL (3.8-10.6)
[2022-04-07 08:01] LABS: African American GFR (CKD) >90 (>60 ml/min/1.73 sqM); Anion Gap 8 mmol/L; Blood Urea Nitrogen 12 mg/dL (7-17); Calcium 9.7 mg/dL (8.4-10.2); Carbon Dioxide 22 mmol/L (22-30); Chloride 105 mmol/L (98-107); Glucose 115 mg/dL (74-99); Non-African American GFR(CKD) >90 (>60 ml/min/1.73 sqM); Potassium 5.1 mmol/L (3.5-5.1); Sodium 135 mmol/L (137-145)
[2022-04-07] MEDS: PANTOPRAZOLE 40 MG/10 ML VIAL IV SCH (08:41)
[2022-04-07] MEDS: ALBUTEROL NEBULIZED 2.5 MG/3 ML INHALATION SCH ×4 (08:55→20:08)
[2022-04-07] MEDS: ENOXAPARIN 40 MG/0.4 ML SYRINGE SQ SCH ×2 (09:05→19:52)
[2022-04-07] MEDS: ESCITALOPRAM 20 MG TAB PO SCH (09:06)
[2022-04-07] MEDS: HYDROcodone/APAP 15 ML SOLUTION PO PRN ×2 (09:13→19:51)
--- NOTE | 2022-04-07 14:44 | P.PN ---
Subjective Progress Note Date: 04/07/22 CHIEF COMPLAINT: Morbid obesity HISTORY OF PRESENT ILLNESS: Patient is status post laparoscopic sleeve ga strectomy. POD# 3. Patient does report improvement with her abdominal pain. Her oral intake is still diminished. She is burping and having reflux after drinking. She is seeing improvement after being on the Decadron. She is now having flatus. Denies any bowel movement. Afebrile. WBC is 9.5 potassium 5.1 Patient seen and examined with Dr. Ellis PHYSICAL EXAM: VITAL SIGNS: Reviewed. GENERAL: Well-developed in no acute distress. HEENT: No sclera icterus. Extraocular movements grossly intact. Moist buccal mucosa. Head is atraumatic, normocephalic. ABDOMEN: Soft. Nondistended. NEUROLOGIC: Alert and oriented. Cranial nerves II through XII grossly intact. ASSESSMENT: 1. Morbid obesity status post laparoscopic sleeve gastrectomy PLAN: -continue IV Decadron to help with nausea and reflux symptoms -Continue bariatric clear liquid diet -Continue pain medication as needed -Encouraged patient to ambulate -Continue antiemetics as needed -Continue IV fluids -Remove potassium from IV fluids due to potassium of 5.1 -Anticipate discharge possibly tomorrow -DVT prophylaxis Lovenox and GI prophylaxis Protonix Physician Leathersmith note has been reviewed by physician. Signing provider agrees with the documented findings, assessment, and plan of care. Objective - Vital Signs Vital signs: Vital Signs Temp 97.7 F 04/07/22 08:00 Pulse 70 04/07/22 08:00 Resp 18 04/07/22 08:00 BP 174/94 04/07/22 08:00 Pulse Ox 95 04/07/22 08:00 FiO2 Intake & Output 04/06/22 04/07/22 04/07/22 18:59 06:59 18:59 Intake Total 1933.333 450 Balance 1933.333 450 Intake: Intake, IV Titration 933.333 Amount 0.9% NaCl with KCl 20 Meq 933.333 /l 1,000 ml @ 100 mls/hr IVPB .BY DURATION [facility] Rx# :[id number] Oral 1000 450 Other: Voiding Method Toilet # Voids 3 - Labs CBC & Chem 7: 04/07/22 06:56 04/07/22 06:56 Labs: Abnormal Lab Results - Last 24 Hours (Table) 04/07/22 04/07/22 Range/Units 06:56 06:56 Neutrophils # 7.9 H (1.3-7.7) k/uL Sodium 135 L (137-145) mmol/L Creatinine 0.41 L (0.52-1.04) mg/dL Glucose 115 H (74-99) mg/dL
[2022-04-07] MEDS: 1: THIAMINE 100 MG, FOLIC ACID 1 MG in SODIUM CHLORIDE 0.9% 1,000 ML 2: SODIUM CHLORIDE IVPB SCH (15:36)
[2022-04-07 20:11] VITALS: RESP 16
[2022-04-08] MEDS: 1: THIAMINE 100 MG, FOLIC ACID 1 MG in SODIUM CHLORIDE 0.9% 1,000 ML 2: SODIUM CHLORIDE IVPB SCH (01:21)
[2022-04-08] MEDS: DEXAMETHASONE SOD PHOSPHATE 4 MG/ML 1 ML VIAL IVP SCH ×4 (01:30→13:31)
--- NOTE | 2022-04-08 02:21 | P.PN ---
Subjective Progress Note Date: 04/07/22 This is a 66-year-old female who was recently admitted under surgical services and underwent laparoscopic sleeve gastrectomy with removal of previous lap band and is being closely monitored. Patient continues with very poor oral intake and was recently just started on clear liquids as patient is having reflux with burping and continues to be nauseated. Patient will continue on clear liquids per surgery and will continue with gentle IV hydration and decrease the dose to 60 mL per hour. Patient denies passing gas and has not had a bowel movement yet. Patient is urinating with no difficulties and does not have a Edgar catheter. Patient has been up walking and encouraged the patient to continue to increase activity as tolerated. Per surgical services patient is being started on IV Decadron to alleviate some symptoms and recommend repeat labs and follow- up with tolerance of clear liquids. Patient is afebrile denies any chest pain or shortness of breath. Patient continues with intermittent nausea although denies any vomiting. 04/07/2022 Patient is seen today and reports to feeling somewhat improved since starting the decadron. Patient is able to take small sips of the clear liquids slowly and swallow. Patient continues with belching and reports that she has started passing gas. Pain is more manageable. Abdomen is tender on exam. Patient is afebrile and denies chest pain or shortness of breath. Surgery recommends one more day of continued decadron and possible discharge in 24 hours. Review of systems: Constitutional: No reports of fatigue, fever, or chills Cardiovascular: No reports of chest pain or palpitations Respiratory: No reports of shortness of breath or cough GI: reports of occasional nausea, no reports of of vomiting, patient reports some gas and no bowel movement and also reports less belching : No reports of dysuria or retention Neurovascular: reports of generalized weakness All medications have been reviewed Active Medications Hydrocodone Bitart/Acetaminophen (Hydrocodone/Apap 15 Ml Solution) 15 ml PO Q6HR PRN PRN Reason: Pain Last Admin: 04/07/22 19:51 Dose: 15 ml Albuterol Sulfate (Albuterol Nebulized 2.5 Mg/3 Ml) 2.5 mg INHALATION RT-QID [facility] Last Admin: 04/07/22 20:08 Dose: Not Given Dexamethasone Sodium Phosphate (Dexamethasone Sod Phosphate 4 Mg/Ml 1 Ml Vial) 4 mg IVP Q6HR [facility] Last Admin: 04/08/22 01:30 Dose: 4 mg Enoxaparin Sodium (Enoxaparin 40 Mg/0.4 Ml Syringe) 40 mg SQ Q12H [facility] Last Admin: 04/07/22 19:52 Dose: 40 mg Escitalopram Oxalate (Escitalopram 20 Mg Tab) 20 mg PO DAILY [facility] Last Admin: 04/07/22 09:06 Dose: 20 mg Hydromorphone HCl (Hydromorphone 0.5 Mg/0.5 Ml Syringe) 0.5 mg IVP Q3HR PRN PRN Reason: Moderate Pain (4 to 6) Last Admin: 04/05/22 03:43 Dose: 0.5 mg Hydromorphone HCl (Hydromorphone 1 Mg/Ml 1 Ml Syringe) 1 mg IVP Q3HR PRN PRN Reason: Severe Pain (7 to 10) Last Admin: 04/05/22 08:06 Dose: 1 mg Hyoscyamine (Hyoscyamine Oral Drops 1.875 Mg/15 Ml Bottle) 0.125 mg PO Q6HR PRN PRN Reason: Esophageal Spasm Last Admin: 04/06/22 07:50 Dose: 0.125 mg Thiamine HCl 100 mg/ Folic (Acid 1 mg/ Sodium Chloride) 1,001.2 mls @ 60 mls/hr IVPB .BY DURATION [facility] Last Admin: 04/08/22 01:21 Dose: 60 mls/hr Sodium Chloride (Saline 0.9%) 1,000 mls @ 100 mls/hr IVPB .BY DURATION [facility] Last Admin: 04/07/22 15:36 Dose: 100 mls/hr Lidocaine HCl (Lidocaine 1% (10mg/Ml) For Iv Start) 0.1 ml INTRADERMA PER PROTOCOL PRN PRN Reason: IV Start Last Admin: 04/04/22 07:43 Dose: 0.1 ml Naloxone HCl (Naloxone 0.4 Mg/Ml 1 Ml Vial) 0.2 mg IV Q2M PRN PRN Reason: Opioid Reversal Ondansetron HCl (Ondansetron 4 Mg/2 Ml Vial) 4 mg IVP Q8HR PRN PRN Reason: Nausea And Vomiting Last Admin: 04/05/22 18:09 Dose: 4 mg Pantoprazole Sodium (Pantoprazole 40 Mg/10 Ml Vial) 40 mg IV DAILY [facility] Last Admin: 04/07/22 08:41 Dose: 40 mg Simethicone (Simethicone 40 Mg/0.6 Ml Drops 2,000 Mg/30 Ml Bottle) 40 mg PO Q6HR PRN PRN Reason: Bloating Last Admin: 04/06/22 07:50 Dose: 40 mg PHYSICAL EXAMINATION: GENERAL: The patient is alert and oriented x4, Well developed, well nourished. Obese. HEENT: Pupils are round and equally reacting to light. EOMI. no scleral icterus. No conjunctival pallor. Normocephalic, atraumatic. No pharyngeal erythema. No thyromegaly. CARDIOVASCULAR: S1 and S2 muffled PULMONARY: diminished breath sounds bilaterally with no wheezing or rhonchi noted. ABDOMEN: soft. less tender on exam. non-distended, sluggish bowel sounds. No palpable organomegaly. MUSCULOSKELETAL: No joint swelling or deformity. EXTREMITIES: No cyanosis, clubbing, or pedal edema. NEUROLOGICAL: Gross neurological examination did not reveal any focal deficits. SKIN: No rashes. Assessment: Status post removal of lap band and sleeve gastrectomy Degenerative joint disease History of sleep apnea GI prophylaxis DVT prophylaxis Full code Plan: Recommend to continue with current medications and management per surgical services. Patient continues to have abdominal pain although reports to passing gas with some abdominal relief. No reported bowel movements. Tolerating bariatric clear liquid diet. Patient continued on Decadron per surgery services and recommend 24 hours of steroids and monitor for tolerance of diet. En couraged increased activity and also continue to use incentive spirometer at least 10 times every hour while awake. Will continue to follow along with surgery services. Thank you for this consultation. Further recommendations to follow based on the clinical course of the patient. Possible discharge in 24 hours. The impression and plan of care has been dictated by Iesha Groves, nurse practitioner as directed. MD Shalini I have performed a history and examination and MDM of this patient, discussed the same with the dictator, and agree with the dictator's assessment and plan as written ,documented as a scribe. Based on total visit time, I have performed more than 50% of the visit. Any additional findings or plans will be noted. Objective - Vital Signs Vital signs: Vital Signs Temp 97.7 F 04/07/22 08:00 Pulse 70 04/07/22 08:00 Resp 18 04/07/22 08:00 BP 174/94 04/07/22 08:00 Pulse Ox 95 04/07/22 08:00 FiO2 Intake & Output 04/06/22 04/07/22 04/07/22 18:59 06:59 18:59 Intake Total 1933.333 450 Balance 1933.333 450 Intake: Intake, IV Titration 933.333 Amount 0.9% NaCl with KCl 20 Meq 933.333 /l 1,000 ml @ 100 mls/hr IVPB .BY DURATION [facility] Rx# :[id number] Oral 1000 450 Other: Voiding Method Toilet # Voids 3 - Labs CBC & Chem 7: 04/07/22 06:56 04/07/22 06:56 Labs: Abnormal Lab Results - Last 24 Hours (Table) 04/07/22 04/07/22 Range/Units 06:56 06:56 Neutrophils # 7.9 H (1.3-7.7) k/uL Sodium 135 L (137-145) mmol/L Creatinine 0.41 L (0.52-1.04) mg/dL Glucose 115 H (74-99) mg/dL
[2022-04-08 04:12] VITALS: PULSE 51
[2022-04-08] MEDS: ALBUTEROL NEBULIZED 2.5 MG/3 ML INHALATION SCH ×2 (07:58→11:34)
[2022-04-08 08:04] VITALS: BP 161/79; TEMP 97.7
[2022-04-08 08:57] LABS: African American GFR (CKD) 116.9 (60.0-200.0); Anion Gap 11.6 mmol/L (10.00-18.00); BUN/Creat Ratio 31.8 Ratio (12.00-20.00); Blood Urea Nitrogen 15.9 mg/dL (9.0-27.0); Calcium 10.1 mg/dL (8.7-10.3); Carbon Dioxide 23.4 mmol/L (20.0-27.5); Non-African American GFR(CKD) 100.9 (60.0-200.0); Potassium 5.1 mmol/L (3.5-5.5)
[2022-04-08] MEDS: PANTOPRAZOLE 40 MG/10 ML VIAL IV SCH (09:17)
[2022-04-08] MEDS: ESCITALOPRAM 20 MG TAB PO SCH (09:17)
[2022-04-08] MEDS: ENOXAPARIN 40 MG/0.4 ML SYRINGE SQ SCH (09:17)
[2022-04-08] MEDS: HYDROcodone/APAP 15 ML SOLUTION PO PRN (09:19)
--- NOTE | 2022-04-08 10:49 | P.DS ---
Providers Date of admission: 04/04/22 06:48 Expected date of discharge: 04/08/22 Attending physician: Nabeel Ellis Consults: 04/04/22 10:44 Consult Physician Routine Consulting Provider: Kassidy Weston Consult Reason/Comments: medical Do you want consulting provider notified?: Yes Primary care physician: Francois Lyman Hospital Course: Is a 67-year-old female who was admitted hospital for conversion of LAP-BAND procedure to sleeve gastrectomy. Patient did well postoperative. Please see hospital chart for details. Procedures: Removal of LAP-BAND and conversion to sleeve gastrectomy Patient Condition at Discharge: Good Plan - Discharge Summary Discharge Rx Participant: No New Discharge Prescriptions: New Pantoprazole Sodium [Protonix] 40 mg PO BID 30 Days #60 tab Docusate [Colace] 100 mg PO BID #20 capsule Ibuprofen [Motrin] 600 mg PO Q6HR PRN #40 tab PRN Reason: Pain oxyCODONE HCL [OxyIR] 5 mg PO Q6H PRN 3 Days #10 tab PRN Reason: Pain Acetaminophen Tab [Tylenol] 650 mg PO Q6H #30 tab Continue Escitalopram [Lexapro] 20 mg PO DAILY Gabapentin 300 mg PO TID buPROPion [Wellbutrin] 150 mg PO BID HYDROcodone/APAP 10-325MG [[place] 10-325] 1 tab PO TID Discharge Medication List Escitalopram [Lexapro] 20 mg PO DAILY 07/27/21 [History] Gabapentin 300 mg PO TID 07/27/21 [History] HYDROcodone/APAP 10-325MG [[place] 10-325] 1 tab PO TID 07/27/21 [History] buPROPion [Wellbutrin] 150 mg PO BID 07/27/21 [History] Pantoprazole Sodium [Protonix] 40 mg PO BID 30 Days #60 tab 04/07/22 [Rx] Acetaminophen Tab [Tylenol] 650 mg PO Q6H #30 tab 04/08/22 [Rx] Docusate [Colace] 100 mg PO BID #20 capsule 04/08/22 [Rx] Ibuprofen [Motrin] 600 mg PO Q6HR PRN #40 tab 04/08/22 [Rx] oxyCODONE HCL [OxyIR] 5 mg PO Q6H PRN 3 Days #10 tab 04/08/22 [Rx] Follow up [facility]ment[facility] Discharge Disposition: HOME SELF-CARE
--- NOTE | 2022-04-10 04:38 | P.PN ---
Subjective Progress Note Date: 04/08/22 This is a 66-year-old female who was recently admitted under surgical services and underwent laparoscopic sleeve gastrectomy with removal of previous lap band and is being closely monitored. Patient continues with very poor oral intake and was recently just started on clear liquids as patient is having reflux with burping and continues to be nauseated. Patient will continue on clear liquids per surgery and will continue with gentle IV hydration and decrease the dose to 60 mL per hour. Patient denies passing gas and has not had a bowel movement yet. Patient is urinating with no difficulties and does not have a Edgar catheter. Patient has been up walking and encouraged the patient to continue to increase activity as tolerated. Per surgical services patient is being started on IV Decadron to alleviate some symptoms and recommend repeat labs and follow- up with tolerance of clear liquids. Patient is afebrile denies any chest pain or shortness of breath. Patient continues with intermittent nausea although denies any vomiting. 04/07/2022 Patient is seen today and reports to feeling somewhat improved since starting the decadron. Patient is able to take small sips of the clear liquids slowly and swallow. Patient continues with belching and reports that she has started passing gas. Pain is more manageable. Abdomen is tender on exam. Patient is afebrile and denies chest pain or shortness of breath. Surgery recommends one more day of continued decadron and possible discharge in 24 hours. 04/08/2022 Patient is seen today in follow up and is passing gas and had a bowel movement and tolerating clear liquid diet. Patient is scheduled to be discharged by surgery today. Patient encouraged to continue with current medications and follow up with primary care provider upon discharge. Patient encouraged incentive spirometer use and increased activity as tolerated. Pain management per primary service. Patient is afebrile and denies any further nausea or vomiting. Patient denies chest pain or shortness of breath and anxious to return home. Review of systems: Constitutional: No reports of fatigue, fever, or chills Cardiovascular: No reports of chest pain or palpitations Respiratory: No reports of shortness of breath or cough GI: no reports of nausea, no reports of of vomiting, patient reports gas and bowel movement this morning : No reports of dysuria or retention Neurovascular: no reports of generalized weakness All medications have been reviewed PHYSICAL EXAMINATION: GENERAL: The patient is alert and oriented x4, Well developed, well nourished. Obese. HEENT: Pupils are round and equally reacting to light. EOMI. no scleral icterus. No conjunctival pallor. Normocephalic, atraumatic. No pharyngeal erythema. No thyromegaly. CARDIOVASCULAR: S1 and S2 muffled PULMONARY: diminished breath sounds bilaterally with no wheezing or rhonchi noted. ABDOMEN: soft. less tender on exam. non-distended, normal bowel sounds. No palpable organomegaly. MUSCULOSKELETAL: No joint swelling or deformity. EXTREMITIES: No cyanosis, clubbing, or pedal edema. NEUROLOGICAL: Gross neurological examination did not reveal any focal deficits. SKIN: No rashes. Assessment: Status post removal of lap band and sleeve gastrectomy Degenerative joint disease History of sleep apnea GI prophylaxis DVT prophylaxis Full code Plan: Recommend to continue with current medications and management per surgical services. Patient reports to passing gas with some abdominal relief and had a bowel movement this morning. Tolerating bariatric clear liquid diet. Encouraged increased activity and also continue to use incentive spirometer at least 10 times every hour while awake. Will continue to follow along with surgery services. Thank you for this consultation. Patient anticipated discharge today. The impression and plan of care has been dictated by Iesha Groves, nurse practitioner as directed. MD Shalini I have performed a history and examination and MDM of this patient, discussed the same with the dictator, and agree with the dictator's assessment and plan as written ,documented as a scribe. Based on total visit time, I have performed more than 50% of the visit. Any additional findings or plans will be noted. Objective - Vital Signs Vital signs: Vital Signs Temp 97.7 F 04/08/22 08:00 Pulse 51 L 04/08/22 08:00 Resp 16 04/08/22 08:00 BP 161/79 04/08/22 08:00 Pulse Ox 94 L 04/08/22 08:00 FiO2 - Labs CBC & Chem 7: 04/07/22 06:56 04/08/22 04:15
--- NOTE | 2022-04-15 10:34 | P.OP ---
Date of Procedure: 04/04/22 Preoperative Diagnosis: Morbid obesity, BMI 37 Postoperative Diagnosis: Morbid obesity, BMI 37 Procedure(s) Performed: Laparoscopic removal of LAP-BAND system Laparoscopic sleeve gastrectomy Anesthesia: DENIZ Surgeon: Nabeel Ellis Estimated Blood Loss (ml): 20 Pathology: other (Stomach) Condition: stable Disposition: PACU Description of Procedure: The patient was placed on the operating room table in the supine position. She received general anesthesia and then was placed in dorsal lithotomy position. Her abdomen was prepped and draped in sterile fashion. The skin incision sites were anesthetized 1% local Xylocaine. The skin was incised the LAP-BAND port site. Using blunt and sharp dissection with cautery LAP-BAND port was dissected free to pathology. And then the skin was incised with an 11 blade in the left lateral position. Using a blade less trocar under direct visualization the peritoneal cavity was entered. The abdomen was insufflated and then a 5 mm laparoscope was placed into the peritoneal cavity. A 5 mm trocar was placed in the right epigastric, and right lateral position. A 15 mm trocar was placed in the supra-umbilical position and another 5 mm trocar was placed in the left lateral position. The left lateral lobe of the liver was retracted. The stomach was visualized. The LAP-BAND device was dissected free from the stomach by lysing adhesions. The LAP-BAND was then cut and withdrawn from around stomach. The LAP-BAND d evice was withdrawn through the 15 mm trocar site. The adhesions to the stomach were freed using the Harmonic scissors and sharp dissection. The anterior gastric wall plication was taken down with sharp dissection. The greater curvature of the stomach was then dissected using the Harmonic scissors. The dissection occurred approximately 5 cm from the pylorus to the level of the left jaki. There was no hiatal hernia seen. At this point a 40- Welsh bougie dilator was placed the oropharynx and passed into the esophagus and into the stomach by the ASSEMBLY LINE BRAZER. The sleeve gastrectomy was performed by using the powered echelon stapler with a seam guard buttress material. Sequential firings of the stapler were performed. The gastric remnant was then brought out through the 15 mm trocar site. The dilator was withdrawn. And a orogastric tube was replaced into the stomach. The stomach was insufflated with 200 mL of methylene blue normal saline. There was no evidence of extravasation. The a bdomen was irrigated there is no bleeding seen. The Joshua-Kiran device was used to close the 15 mm trocar with 0 Vicryl. Skin was closed with interrupted 3-0 Monocryl sutures once the trochars withdrawn. Dermabond dressing was applied. Patient was sent to recovery in stable condition.
== END 2022-04-08 14:43 | disposition home or self-care (01) | DRG 621 ==
LOC: 2ORMAIN 06:48 → 4SSUR 10:58
PROVIDERS: ADMIT Surgery; ATTEND Surgery
PROC: 0DP64CZ Removal of Extraluminal Device from Stomach, Percutaneous Endoscopic Approach (ICD-10-PCS; principal; 2022-04-04 08:35)
PROC: 0DB64Z3 Excision of Stomach, Percutaneous Endoscopic Approach, Vertical (ICD-10-PCS; 2022-04-04 08:35)
DX: E66.01 Morbid (severe) obesity due to excess calories (principal); G47.30 Sleep apnea, unspecified; K21.9 Gastro-esophageal reflux disease without esophagitis; M19.90 Unspecified osteoarthritis, unspecified site; Z68.37 Body mass index [BMI] 37.0-37.9, adult; Z79.899 Other long term (current) drug therapy; Z80.9 Family history of malignant neoplasm, unspecified; Z98.84 Bariatric surgery status
CPT/HCPCS: 80048; 80051; 82310; 82565; 83735; 84100; 84520; 85025; 88307; 94640; 94760

== ENCOUNTER → 2022-04-18 | Outpatient (CLI) | payer MEDICARE ==
[2022-04-18 12:59] VITALS: BP 126/80; PULSE 59; TEMP 98.2; BMI 35.2
== END ==
LOC: BARWHC3 12:23
PROVIDERS: ATTEND Surgery
DX: Z01.818 Encounter for other preprocedural examination (principal); F41.1 Generalized anxiety disorder
CPT/HCPCS: 97802; G0463; 99211

== ENCOUNTER → 2022-05-02 | Outpatient (CLI) | payer MEDICARE ==
[2022-05-02 14:03] VITALS: BP 160/89; PULSE 66; TEMP 98.2; BMI 34.2
[2022-05-02 22:42] LABS: HCT 45.7 % (37.2-46.3); HGB 14.1 g/dL (12.0-15.0); MCH 28.8 pg (27.0-32.0); MCHC 30.9 g/dL (32.0-37.0); MCV 93.3 fL (80.0-97.0); Mean Platelet Volume 11.1 fL (9.5-12.2); NRBC Per 100 WBC 0 /100 WBCS (0.0-0.0); Platelet Count 285 X 10*3/uL (140-440); RDW 13.6 % (11.5-14.5); WBC 7.07 X 10*3/uL (4.50-10.00)
[2022-05-02 23:44] LABS: % Iron Saturation 20.83 (12.00-45.00); Albumin 4.7 g/dL (3.8-4.9); Albumin/Globulin Ratio 1.64 (1.60-3.17); Anion Gap 14.2 mmol/L (10.00-18.00); BUN/Creat Ratio 14.92 Ratio (12.00-20.00); Blood Urea Nitrogen 9.8 mg/dL (9.0-27.0); Calcium 10.6 mg/dL (8.7-10.3); Carbon Dioxide 23.8 mmol/L (20.0-27.5); Globulin 2.8 g/dL (1.6-3.3); Magnesium 2.2 mg/dL (1.5-2.4); Non-African American GFR(CKD) 92.3 (60.0-200.0); Potassium 4.6 mmol/L (3.5-5.5); Total Bilirubin 0.8 mg/dL (0.30-1.20); Total Protein 7.5 g/dL (6.2-8.2)
[2022-05-03 11:23] LABS: Zinc, Serum 78 ug/dL (60-130)
[2022-05-03 12:36] LABS: Vitamin A 43 ug/dL (38-106)
--- NOTE | 2022-05-03 16:13 | P.HPBAR ---
Bariatric H&P - History & Physicial H&P Date: 05/02/22 History & Physicial: Visit/CC: 1 month sleeve f/u Patient initial contact: Initial weight: 95.254 kg Initial weight in pounds: 210.00 Height: 5 ft Initial BMI: 41.0 Last weight: Current weight: 79.379 kg Current weight in pounds: 175.00 Current BMI: 34.2 [place] body weight (based on NIH guidelines): 45.359 kg Excess body weight loss: 31.8% The patient is a 67 year-old F who presents for Bariatric Assessment. Patient presents today for bariatric follow-up. She has minimal complaints of GERD. Her current weight is 175 pounds. Her previous weight is 181 pounds. Past Medical History Past Medical History: Osteoarthritis (OA), Sleep Apnea/CPAP/BIPAP Additional Past Medical History / Comment(s): LAP BAND REMOVED-POSSIBLE GASTRIC SLEEVE OR BYPASS History of Any Multi-Drug Resistant Organisms: None Reported Past Surgical History: Bariatric Surgery Additional Past Surgical History / Comment(s): lap band 2000, lap band replacement 2009, panniculectomy, EGD, gastric sleeve 04/04/2022 Past Anesthesia/Blood Transfusion Reactions: No Reported Reaction Past Psychological History: Anxiety, Depression Smoking Status: Never smoker Past Alcohol Use History: None Reported Past Drug Use History: None Reported - Past Family History Sister(s) Family Medical History: Cancer Father Family Medical History: Cancer Surgical - Exam Vital Signs Temp Pulse BP 98.2 F 66 160/89 05/02/22 14:00 05/02/22 14:00 05/02/22 14:00 - General well developed, well nourished, no distress - Eyes PERRL - ENT normal pinna - Neck no masses - Respiratory normal expansion - Abdomen Abdomen: soft, non tender Results - Labs 05/02/22 14:28 05/02/22 14:28 Abnormal Lab Results - Last 24 Hours (Table) 05/02/22 05/02/22 Range/Units 14:28 14:28 MCHC 30.9 L (32.0-37.0) g/dL Calcium 10.6 H (8.7-10.3) mg/dL Diabetes panel 05/02/22 Range/Units 14:28 Sodium 140 (135-145) mmol/L Potassium 4.6 (3.5-5.5) mmol/L Chloride 102 (96-109) mmol/L Carbon Dioxide 23.8 (20.0-27.5) mmol/L BUN 9.8 (9.0-27.0) mg/dL Creatinine 0.7 (0.6-1.5) mg/dL Glucose 99 (70-110) mg/dL Calcium 10.6 H (8.7-10.3) mg/dL AST 28 (13-35) U/L ALT 28 (8-44) U/L Alkaline Phosphatase 108 (41-126) U/L Total Protein 7.5 (6.2-8.2) g/dL Albumin 4.7 (3.8-4.9) g/dL Thyroid panel 05/02/22 Range/Units 14:28 TSH 1.400 (0.350-5.500) uIU/mL Calcium panel 05/02/22 Range/Units 14:28 Calcium 10.6 H (8.7-10.3) mg/dL Albumin 4.7 (3.8-4.9) g/dL Pituitary panel 05/02/22 Range/Units 14:28 Sodium 140 (135-145) mmol/L Potassium 4.6 (3.5-5.5) mmol/L Chloride 102 (96-109) mmol/L Carbon Dioxide 23.8 (20.0-27.5) mmol/L BUN 9.8 (9.0-27.0) mg/dL Creatinine 0.7 (0.6-1.5) mg/dL Glucose 99 (70-110) mg/dL Calcium 10.6 H (8.7-10.3) mg/dL TSH 1.400 (0.350-5.500) uIU/mL Adrenal panel 05/02/22 Range/Units 14:28 Sodium 140 (135-145) mmol/L Potassium 4.6 (3.5-5.5) mmol/L Chloride 102 (96-109) mmol/L Carbon Dioxide 23.8 (20.0-27.5) mmol/L BUN 9.8 (9.0-27.0) mg/dL Creatinine 0.7 (0.6-1.5) mg/dL Glucose 99 (70-110) mg/dL Calcium 10.6 H (8.7-10.3) mg/dL Total Bilirubin 0.80 (0.30-1.20) mg/dL AST 28 (13-35) U/L ALT 28 (8-44) U/L Alkaline Phosphatase 108 (41-126) U/L Total Protein 7.5 (6.2-8.2) g/dL Albumin 4.7 (3.8-4.9) g/dL Bariatric Assessment & Plan Plan: Resolving morbid obesity. BMI is 34. Patient's GERD is minimal and will be observed. She'll follow-up in 4 weeks. Bariatric Checklist Checklist: Plan: Checklist: EGD: 1. Hiatal hernia: 2. H. Pylori: HgbA1c: Vitamin D: Smoking: Primary care physician referral: dr mcclellan Psychiatry clearance: Cardiology clearance: Sleep study: Diet journal: VTE risk score: VTE risk level: Rehab needs at discharge:
[2022-05-04 10:07] LABS: Vit B1(Thiamine) 48 ug/L (38-122)
== END ==
LOC: BARWHC3 13:32
PROVIDERS: ATTEND Surgery
DX: E66.01 Morbid (severe) obesity due to excess calories (principal); D50.8 Other iron deficiency anemias; E44.0 Moderate protein-calorie malnutrition; T56.894A Toxic effect of other metals, undetermined, initial encounter; E55.9 Vitamin D deficiency, unspecified; K21.9 Gastro-esophageal reflux disease without esophagitis; M19.90 Unspecified osteoarthritis, unspecified site; F41.9 Anxiety disorder, unspecified; F32.A Depression, unspecified; Z98.84 Bariatric surgery status; Z79.1 Long term (current) use of non-steroidal anti-inflammatories (NSAID); Z79.899 Other long term (current) drug therapy; Z68.34 Body mass index [BMI] 34.0-34.9, adult
CPT/HCPCS: 84255; 84425; 80053; 82607; 82728; 82746; 83540; 83550; 83735; 84443; 84590; 84630; 85027; 82306; G0463; 99211